=== PATIENT | male | born 2005 | race Caucasian/White ===

== ENCOUNTER 2023-04-30 09:54 | Outpatient (CLI) | payer MEDICAID, SELFPAY ==
[2023-05-02 19:14] LABS: H pylori, Urea Breath NOT DETECTED (NOT DETECTED)
== END 2023-04-30 09:55 | disposition home or self-care (01) ==
PROVIDERS: PCP Family Medicine; Visit Provider Family Medicine
DX: K21.9 Gastro-esophageal reflux disease without esophagitis (principal)
CPT/HCPCS: 83013

== ENCOUNTER 2023-09-26 18:57 | Emergency (ER) | payer OTHER, SELFPAY ==
[2023-09-26 19:02] VITALS: BP 106/84; PULSE 78; RESP 18; TEMP 36.9; O2SAT 100
--- NOTE | 2023-09-26 19:09 | ED.DENTAL ---
HPI - Dental/Oral General Chief complaint: Dental/Oral Stated complaint: dental Time Seen by Provider: 09/26/23 19:08 History of Present Illness HPI Narrative: Pt presents with dental pain and swelling to left lower molar for three days. Pt denies fever or vomiting. Related Data Allergies Allergy/AdvReac Type Severity Reaction Status Date / Time No Known Allergies Allergy Verified 04/30/23 07:26 Review of Systems Review of Systems: All systems reviewed & are unremarkable except as noted in HPI and below PMFSH Past Medical History Medical History (Updated 09/26/23 @ 19:13 by Shari Alex III, DO) ADHD Anxiety Depression Panic attacks Family History Family History (Updated 04/30/23 @ 09:26 by Claudette Jung) Mother Diabetes mellitus Lupus Heart disease Social History Social History (Updated 04/30/23 @ 09:26 by Claudette Jung) Smoking status: Never smoker Alcohol intake: never Substance use: former Substance use type: marijuana Exam Const: General: healthy appearing and no acute distress Nutritional Appearance: well nourished Orientation/consciousness: patient oriented x3 Limitations: no limitations HENMT: Teeth and gingiva: abnormal tooth and associated gingiva (left lower first molar tender to palpation no significant abscess felt) Throat: posterior oropharynx normal Neck: Neck: no lymphadenopathy and no meningeal signs Resp: Effort & Inspection: normal respiratory effort Neuro: General: patient oriented x3, moves all extremities and no focal motor deficits Extrem: General: normal to inspection and no clubbing, cyanosis or edema Psych: Mental Status: mental status grossly normal Affect: normal affect Attitude: cooperative Course Vital Signs Vital signs: Vital Signs Temperature 98.4 F 09/26/23 19:02 Pulse Rate 78 09/26/23 19:02 Respiratory Rate 18 09/26/23 19:02 Blood Pressure 106/84 09/26/23 19:02 Pulse Oximetry 100 09/26/23 19:02 Oxygen Delivery Room Air 09/26/23 19:02 Temperature 98.4 F 09/26/23 19:02 Pulse Rate 78 09/26/23 19:02 Respiratory Rate 18 09/26/23 19:02 Blood Pressure 106/84 09/26/23 19:02 Pulse Oximetry 100 09/26/23 19:02 Oxygen Delivery Room Air 09/26/23 19:02 MDM - Dental/Oral MDM Narrative Medical decision making narrative: will start pt on pcn and naprosyn with a few norco Differential Diagnosis Differential diagnosis: Likely gingival abscess, dental caries, toothache and dental abscess Discharge Plan Discharge Clinical Impression: Dental abscess Patient Disposition: Home, Self-Care Condition: Stable Instructions: Antibiotic Form, Dental Abscess (ED) Prescriptions: New penicillin V potassium 500 mg tablet 500 mg PO Q6H 10 Days Qty: 40 0RF naproxen [Naprosyn] 500 mg tablet 500 mg PO BID Qty: 20 0RF hydrocodone-acetaminophen 5-325 mg tablet 1 tablet PO Q4H PRN (Reason: pain) Qty: 10 0RF No Action pantoprazole 40 mg tablet,delayed release (DR/EC) 40 mg PO QAM Qty: 30 2RF Follow-up/Referrals: Giovanny Shepherd DO [Primary Care Provider] - Stand Alone Forms: Work/School Release IP
== END 2023-09-26 19:28 | disposition home or self-care (01) ==
LOC: CHSED 19:20
PROVIDERS: Emergency Provider Emergency Medicine; PCP Family Medicine
DX: K04.7 Periapical abscess without sinus (principal)
CPT/HCPCS: 99283